=== PATIENT | male | born 1975 | race Caucasian/White ===

== ENCOUNTER 2017-09-02 14:28 | Inpatient (IN) | payer OTHER ==
[~2017-09-02] VITALS: Ht 182.9 cm; Wt 90.3 kg
[2017-09-02 16:40] VITALS: BP 130/90
[2017-09-02] MEDS: HYDROmorphone 2 MG/ML VIAL IV PRN ×2 (18:30→21:23)
[2017-09-02 19:00] VITALS: BP 131/90
[2017-09-02] MEDS ORDERED: ZOLPIDEM 5 MG TABLET. PO PRN (21:00)
[2017-09-02] MEDS ORDERED: 0.9 % SODIUM CHLORIDE 10 ML DISP.SYRIN. IV PRN (21:00)
[2017-09-02] MEDS ORDERED: oxyCODONE IR 5 MG TABLET PO PRN (21:00)
[2017-09-02] MEDS ORDERED: CALCIUM CARBONATE 500 MG TAB.CHEW PO PRN (21:00)
[2017-09-02] MEDS: SENNOSIDES/DOCUSATE 8.6/50MG TABLET. PO SCH (21:23)
[2017-09-02] MEDS: POTASSIUM CL 20MEQ D5-0.45NACL 1,000 ML IV SCH (21:24)
[2017-09-02 21:35] LABS: BASO # 0.1 x10^3/uL (0.0-0.2); BASO % 1 % (0-3); EOS % 1 % (0-3); HEMOGLOBIN 14.5 g/dL (13.0-17.5); LYMPH # 3.9 x10^3/uL (1.0-4.8); LYMPH % 29 % (24-48); MEAN CORPUSCULAR HEMOGLOBIN 30 pg (25-35); MEAN CORPUSCULAR HGB CONC 34 g/dL (31-37); MEAN CORPUSCULAR VOLUME 88 fL (79-100); MONO % 12 % (0-9); NEUT % 58 % (31-73); PLATELET COUNT 384 x10^3/uL (140-400); RED BLOOD COUNT 4.88 x10^6/uL (4.30-5.70); RED CELL DISTRIBUTION WIDTH 13.7 % (11.5-14.5); WHITE BLOOD COUNT 13.6 x10^3/uL (4.0-11.0)
[2017-09-02] MEDS: NICOTINE 21MG PATCH. TD SCH (21:58)
[2017-09-02 21:59] LABS: ALBUMIN 3.6 g/dL (3.4-5.0); CALCIUM 8.9 mg/dL (8.5-10.1); GFR 83.2; POTASSIUM 3.1 mmol/L (3.5-5.1); TOTAL BILIRUBIN 0.3 mg/dL (0.2-1.0); TOTAL PROTEIN 7.2 g/dL (6.4-8.2)
[2017-09-02] MEDS: oxyCODONE IR 5 MG TABLET PO PRN (22:26)
[2017-09-02 23:21] VITALS: BP 136/89
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
[2017-09-03] MEDS: HYDROmorphone 2 MG/ML VIAL IV PRN ×4 (00:04→11:21)
[2017-09-03 02:26] LABS: INR 1.1 (0.8-1.1); PROTHROMBIN TIME PATIENT 13.4 SEC (11.7-14.0)
[2017-09-03] MEDS: oxyCODONE IR 5 MG TABLET PO PRN ×2 (03:08→13:29)
[2017-09-03 03:30] VITALS: BP 118/88
[2017-09-03 07:00] VITALS: BP 135/75
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
[2017-09-03] MEDS ORDERED: NICOTINE 21MG PATCH. TD SCH (09:00)
[2017-09-03] MEDS: SENNOSIDES/DOCUSATE 8.6/50MG TABLET. PO SCH (09:00)
[2017-09-03] MEDS: POTASSIUM CL 20MEQ D5-0.45NACL 1,000 ML IV SCH ×2 (09:15→17:00)
[2017-09-03] MEDS: NICOTINE 21MG PATCH. TD SCH (09:17)
--- NOTE | 2017-09-03 10:54 | PDOC ---
PROGRESS NOTES Chief Complaint Chief Complaint R tibial fx. tobacco use disorder planned ORIF today pain control OK History of Present Illness History of Present Illness hungry and thirsty pain ok when in bed, has not tried to get up, Vitals Vitals Vital Signs Date Time Temp Pulse Resp B/P (MAP) Pulse Ox O2 Delivery O2 Flow Rate FiO2 09/03/17 09:12 97 Room Air 09/03/17 07:00 98.1 79 18 135/75 (95) 98.1 Physical Exam General: Alert, Oriented X3, Cooperative, No acute distress Heart: Regular rate, No murmurs Abdomen: Normal bowel sounds, Soft, No tenderness Extremities: No clubbing, No edema, Other (R leg in ill-fitting brace) Labs LABS Laboratory Tests Test 09/02/17 21:15 White Blood Count 13.6 x10^3/uL (4.0-11.0) Red Blood Count 4.88 x10^6/uL (4.30-5.70) Hemoglobin 14.5 g/dL (13.0-17.5) Hematocrit 43.0 % (39.0-53.0) Mean Corpuscular Volume 88 fL (79-100) Mean Corpuscular Hemoglobin 30 pg (25-35) Mean Corpuscular Hemoglobin Concent 34 g/dL (31-37) Red Cell Distribution Width 13.7 % (11.5-14.5) Platelet Count 384 x10^3/uL (140-400) Neutrophils (%) (Auto) 58 % (31-73) Lymphocytes (%) (Auto) 29 % (24-48) Monocytes (%) (Auto) 12 % (0-9) Eosinophils (%) (Auto) 1 % (0-3) Basophils (%) (Auto) 1 % (0-3) Neutrophils # (Auto) 7.9 x10^3uL (1.8-7.7) Lymphocytes # (Auto) 3.9 x10^3/uL (1.0-4.8) Monocytes # (Auto) 1.7 x10^3/uL (0.0-1.1) Eosinophils # (Auto) 0.1 x10^3/uL (0.0-0.7) Basophils # (Auto) 0.1 x10^3/uL (0.0-0.2) Prothrombin Time 13.4 SEC (11.7-14.0) Prothromb Time International Ratio 1.1 (0.8-1.1) Sodium Level 139 mmol/L (136-145) Potassium Level 3.1 mmol/L (3.5-5.1) Chloride Level 103 mmol/L (98-107) Carbon Dioxide Level 25 mmol/L (21-32) Anion Gap 11 (6-14) Blood Urea Nitrogen 13 mg/dL (8-26) Creatinine 1.0 mg/dL (0.7-1.3) Estimated GFR (Cockcroft-Gault) 83.2 BUN/Creatinine Ratio 13 (6-20) Glucose Level 151 mg/dL (70-99) Calcium Level 8.9 mg/dL (8.5-10.1) Total Bilirubin 0.3 mg/dL (0.2-1.0) Aspartate Amino Transf (AST/SGOT) 21 U/L (15-37) Alanine Aminotransferase (ALT/SGPT) 31 U/L (16-63) Alkaline Phosphatase 73 U/L (46-116) Total Protein 7.2 g/dL (6.4-8.2) Albumin 3.6 g/dL (3.4-5.0) Albumin/Globulin Ratio 1.0 (1.0-1.7) Review of Systems Review of Systems no n.,v.d Comment Review of Relevant I have reviewed the following items tico (where applicable) has been applied. Labs Laboratory Tests Test 09/02/17 21:15 White Blood Count 13.6 x10^3/uL (4.0-11.0) Red Blood Count 4.88 x10^6/uL (4.30-5.70) Hemoglobin 14.5 g/dL (13.0-17.5) Hematocrit 43.0 % (39.0-53.0) Mean Corpuscular Volume 88 fL (79-100) Mean Corpuscular Hemoglobin 30 pg (25-35) Mean Corpuscular Hemoglobin Concent 34 g/dL (31-37) Red Cell Distribution Width 13.7 % (11.5-14.5) Platelet Count 384 x10^3/uL (140-400) Neutrophils (%) (Auto) 58 % (31-73) Lymphocytes (%) (Auto) 29 % (24-48) Monocytes (%) (Auto) 12 % (0-9) Eosinophils (%) (Auto) 1 % (0-3) Basophils (%) (Auto) 1 % (0-3) Neutrophils # (Auto) 7.9 x10^3uL (1.8-7.7) Lymphocytes # (Auto) 3.9 x10^3/uL (1.0-4.8) Monocytes # (Auto) 1.7 x10^3/uL (0.0-1.1) Eosinophils # (Auto) 0.1 x10^3/uL (0.0-0.7) Basophils # (Auto) 0.1 x10^3/uL (0.0-0.2) Prothrombin Time 13.4 SEC (11.7-14.0) Prothromb Time International Ratio 1.1 (0.8-1.1) Sodium Level 139 mmol/L (136-145) Potassium Level 3.1 mmol/L (3.5-5.1) Chloride Level 103 mmol/L (98-107) Carbon Dioxide Level 25 mmol/L (21-32) Anion Gap 11 (6-14) Blood Urea Nitrogen 13 mg/dL (8-26) Creatinine 1.0 mg/dL (0.7-1.3) Estimated GFR (Cockcroft-Gault) 83.2 BUN/Creatinine Ratio 13 (6-20) Glucose Level 151 mg/dL (70-99) Calcium Level 8.9 mg/dL (8.5-10.1) Total Bilirubin 0.3 mg/dL (0.2-1.0) Aspartate Amino Transf (AST/SGOT) 21 U/L (15-37) Alanine Aminotransferase (ALT/SGPT) 31 U/L (16-63) Alkaline Phosphatase 73 U/L (46-116) Total Protein 7.2 g/dL (6.4-8.2) Albumin 3.6 g/dL (3.4-5.0) Albumin/Globulin Ratio 1.0 (1.0-1.7) Laboratory Tests Test 09/02/17 21:15 White Blood Count 13.6 x10^3/uL (4.0-11.0) Red Blood Count 4.88 x10^6/uL (4.30-5.70) Hemoglobin 14.5 g/dL (13.0-17.5) Hematocrit 43.0 % (39.0-53.0) Mean Corpuscular Volume 88 fL (79-100) Mean Corpuscular Hemoglobin 30 pg (25-35) Mean Corpuscular Hemoglobin Concent 34 g/dL (31-37) Red Cell Distribution Width 13.7 % (11.5-14.5) Platelet Count 384 x10^3/uL (140-400) Neutrophils (%) (Auto) 58 % (31-73) Lymphocytes (%) (Auto) 29 % (24-48) Monocytes (%) (Auto) 12 % (0-9) Eosinophils (%) (Auto) 1 % (0-3) Basophils (%) (Auto) 1 % (0-3) Neutrophils # (Auto) 7.9 x10^3uL (1.8-7.7) Lymphocytes # (Auto) 3.9 x10^3/uL (1.0-4.8) Monocytes # (Auto) 1.7 x10^3/uL (0.0-1.1) Eosinophils # (Auto) 0.1 x10^3/uL (0.0-0.7) Basophils # (Auto) 0.1 x10^3/uL (0.0-0.2) Prothrombin Time 13.4 SEC (11.7-14.0) Prothromb Time International Ratio 1.1 (0.8-1.1) Sodium Level 139 mmol/L (136-145) Potassium Level 3.1 mmol/L (3.5-5.1) Chloride Level 103 mmol/L (98-107) Carbon Dioxide Level 25 mmol/L (21-32) Anion Gap 11 (6-14) Blood Urea Nitrogen 13 mg/dL (8-26) Creatinine 1.0 mg/dL (0.7-1.3) Estimated GFR (Cockcroft-Gault) 83.2 BUN/Creatinine Ratio 13 (6-20) Glucose Level 151 mg/dL (70-99) Calcium Level 8.9 mg/dL (8.5-10.1) Total Bilirubin 0.3 mg/dL (0.2-1.0) Aspartate Amino Transf (AST/SGOT) 21 U/L (15-37) Alanine Aminotransferase (ALT/SGPT) 31 U/L (16-63) Alkaline Phosphatase 73 U/L (46-116) Total Protein 7.2 g/dL (6.4-8.2) Albumin 3.6 g/dL (3.4-5.0) Albumin/Globulin Ratio 1.0 (1.0-1.7) Medications Current Medications Hydromorphone HCl (Dilaudid) 0.5 mg PRN Q2HRS PRN IV PAIN Last administered on 09/02/17 21:23; Start 09/02/17 at 18:15 Sodium Chloride (Normal Saline Flush) 3 ml PRN DAILY PRN IV AFTER MEDS AND BLOOD DRAWS; Start 09/02/17 at 21:00 Potassium Chloride/Dextrose/ Sod Cl 1,000 ml @ 100 mls/hr Q10H IV Last administered on 09/03/17 09:15; Start 09/02/17 at 21:00 Calcium Carbonate/ Glycine (Tums) 500 mg PRN Q3HRS PRN PO UPSET STOMACH; Start 09/02/17 at 21:00 Zolpidem Tartrate (Ambien) 5 mg PRN QHS PRN PO INSOMNIA, MAY REPEAT IN 1HR; Start 09/02/17 at 21:00 Oxycodone HCl (Roxicodone) 5 mg PRN Q4HRS PRN PO PAIN - 1st choice; Start 09/02/17 at 21:00 Hydromorphone HCl (Dilaudid) 0.5 mg PRN Q2HR PRN IV severe pain - 2nd choice Last administered on 09/03/17 09:12; Start 09/02/17 at 21:00 Senna/Docusate Sodium (Senna Plus) 1 tab BID PO Last administered on 09/02/17 21:23; Start 09/02/17 at 21:15 Enoxaparin Sodium (Lovenox 40mg Syringe) 40 mg Q24H SQ ; Start 09/04/17 at 09: 00 Nicotine (Nicoderm Cq 21mg) 1 patch DAILY TD ; Start 09/03/17 at 09:00; Stop at 09:00; Status DC Oxycodone HCl (Roxicodone) 10 mg PRN Q4HRS PRN PO PAIN - 1st choice Last administered on 09/03/17 03:08; Start 09/02/17 at 21:15 Nicotine (Nicoderm Cq 21mg) 1 patch DAILY TD Last administered on 09/03/17t 09: 17; Start 09/02/17 at 22:00 Vitals/I & O Vital Sign - Last 24 Hours 09/02/17 09/02/17 09/02/17 09/02/17 16:40 16:40 19:00 20:30 Temp 98.6 98.6 98.1 98.6 98.6 98.1 Pulse 78 78 85 Resp 18 18 18 B/P (MAP) 130/90 (103) 130/90 (103) 131/90 (104) Pulse Ox 98 98 92 O2 Delivery Room Air Room Air Room Air Room Air 09/02/17 09/02/17 09/02/17 09/02/17 21:23 21:58 22:26 23:21 Temp 98.3 98.3 Pulse 90 Resp 16 16 16 17 B/P (MAP) 136/89 (105) Pulse Ox 92 92 92 97 O2 Delivery Room Air Room Air Room Air Room Air 09/03/17 09/03/17 09/03/17 09/03/17 00:04 03:08 03:30 04:00 Temp 98.1 98.1 Pulse 89 Resp 16 16 16 16 B/P (MAP) 118/88 (98) Pulse Ox 97 97 97 97 O2 Delivery Room Air Room Air Room Air Room Air 09/03/17 09/03/17 09/03/17 09/03/17 04:10 04:31 07:00 09:12 Temp 98.1 98.1 Pulse 79 Resp 16 16 18 B/P (MAP) 135/75 (95) Pulse Ox 97 97 94 97 O2 Delivery Room Air Room Air Room Air Room Air UMA GODINEZ MD Sep 03, 2017 10:54
[2017-09-03 11:00] VITALS: BP 125/87
[2017-09-03] MEDS ORDERED: POTASSIUM CHLORIDE 20 MEQ TABLET.ER. PO ONE (11:00)
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
[2017-09-03] MEDS ORDERED: SENN-22 PO (13:30)
[2017-09-03] MEDS ORDERED: NICO1PAT25 TP (13:30)
[2017-09-03] MEDS ORDERED: OXYC-328 PO (13:30)
[2017-09-03 15:00] VITALS: BP 136/85
[2017-09-03] MEDS ORDERED: oxyCODONE/APAP 10/325 1 TAB TABLET PO PRN (16:30)
[2017-09-04] MEDS ORDERED: POTASSIUM CHLORIDE 20 MEQ TABLET.ER. PO SCH (08:00)
[2017-09-04] MEDS ORDERED: ENOXAPARIN 40 MG/0.4 ML SYRINGE. SQ SCH (09:00)
--- NOTE | 2017-09-17 01:45 | PDOC3 ---
Discharge Summary Visit Information Date of Admission: Sep 02, 2017 Date of Discharge: Sep 03, 2017 Admitting Diagnosis: leg fracture, fall pain Final Diagnosis R tibial fx. tobacco use disorder planned ORIF today pain control OK s Brief Hospital Course Allergies Allergies Coded Allergies Type Severity Reaction Last Updated Verified morphine Allergy Intermediate Itching, nausea 09/02/17 Yes Brief Hospital Course Mr. Hannon is a 42 old admit after a fall, fracture to tibia, closed, communited, Dr. Barroso from ortho eval, no benefit to surg at th time. brace placed, DC home non weight bearing maybe 2 mos Discharge Information Condition at Discharge: Improved Follow Up: Weeks Disposition/Orders: D/C to Home Scheduled Nicotine (NICODERM CQ 14mg), 1 PATCH TP DAILY Sennosides/Docusate Sodium (Senna-Time S Tablet), 1 TAB PO DAILY Scheduled PRN Oxycodone/Apap 10-325 (Percocet 10-325 Mg Tablet), 1 TAB PO QID PRN for PAIN UMA GODINEZ MD Sep 17, 2017 01:45
== END 2017-09-03 16:55 | disposition home or self-care (01) | DRG 563 ==
LOC: 4 NORTH 16:43 → EDBD 16:43
PROVIDERS: ADMIT Internal Medicine Hematology & Oncology; ATTEND Internal Medicine Hematology & Oncology
DX: S82.201A Unspecified fracture of shaft of right tibia, initial encounter for closed fracture (principal); F17.210 Nicotine dependence, cigarettes, uncomplicated; Z88.5 Allergy status to narcotic agent; V89.2XXA Person injured in unspecified motor-vehicle accident, traffic, initial encounter; Y93.89 Activity, other specified; Y92.89 Other specified places as the place of occurrence of the external cause; Y99.8 Other external cause status
CPT/HCPCS: 36415; 73721; 80053; 82306; 85025; 85610; J1170

== ENCOUNTER 2021-07-19 10:07 | Emergency (ER) | payer SELFPAY ==
[~2021-07-19] VITALS: Ht 182.9 cm; Wt 95.5 kg
[~2021-07-19 10:07] MED LIST: NICO1PAT25 TP; OXYC1TAB22 PO; SENN-22 PO
--- NOTE | 2021-07-19 12:13 | RAD ---
EXAM: Chest, single view. HISTORY: Cough. COMPARISON: None. FINDINGS: A frontal view of the chest is obtained. There is no infiltrate, pleural effusion or pneumo thorax. The heart is normal in size. IMPRESSION: No acute pulmonary finding. Electronically signed by: Bettina Butterfield MD (07/19/2021 12:11 PM) [id number]
--- NOTE | 2021-07-19 12:16 | PHYS DOC ---
Past Medical History Past Medical History: No Pertinent History Past Surgical History: Other Additional Past Surgical Histo: left knee, left leg ORIF, vasectomy,dental extractions Smoking Status: Current Every Day Smoker Additional Information: 1 ppd Alcohol Use: Rarely General Adult EDM: Chief Complaint: FLU SYMPTOM HPI: HPI: 46-year-old male presents to the emergency department with suspected Covid symptoms including cough, shortness of breath, body aches, fever, chills. He reports he has had symptoms for approximately 3 days which started with fatigue. He has been exposed to several family members who have been positive for coronavirus. He has not been vaccinated to this point. He denies any further symptoms. The patient denies nausea, vomiting, chest pain, abdominal pain, urinary symptoms, recent trauma, or any other complaints. Review of Systems: Review of Systems: Review of systems is otherwise negative except for what was mentioned in HPI Heart Score: C/O Chest Pain: No Allergies: Allergies: Allergies Coded Allergies Type Severity Reaction Last Updated Verified morphine Allergy Intermediate Itching, nausea 07/19/21 Yes Physical Exam: PE: Constitutional: No acute distress, non-toxic appearance. HENT: Atraumatic, bilateral external ears normal, nose normal. Eyes: PERRLA, EOMI, conjunctiva normal, no discharge. Neck: Normal range of motion, supple, no stridor. Cardiovascular: Heart rate regular rhythm. 2+ radial pulses Lungs & Thorax: No respiratory distress, symmetrical expansion. Bilateral breath sounds clear to auscultation Abdomen: Soft, no tenderness Skin: Warm, dry. Extremities: No tenderness, no cyanosis, ROM intact, no edema. Neurologic: Alert and oriented X 3, normal motor function, normal sensory function, no focal deficits noted. Non ataxic gait. GCS 15. Psychologic: Affect normal, judgment normal, mood normal. Current Patient Data: Vital Signs: Vital Signs Date Time Temp Pulse Resp B/P (MAP) Pulse Ox O2 Delivery O2 Flow Rate FiO2 07/19/21 11:55 79 16 131/86 (101) 97 Room Air 07/19/21 10:42 99.1 99.1 Radiology/Procedures: Radiology/Procedures: No airspace disease, infiltrates or consolidations, lung mccord clear. No pneumothorax or pleural effusion. Cardiac silhouette within normal limits. No widening of mediastinum. No obvious free air seen. Impression: normal CXR. In terpreted by me, Ryan Jaramillo D.O. Course & Med Decision Making: Course & Med Decision Making Patient with normal-appearing chest x-ray, no further symptoms, high suspicion for coronavirus infection. Advised patient to quarantine at home and strict return precautions were discussed with the patient. He is early in his course so I did express that he may get worse given that he is unvaccinated. I urged him to get vaccinated when it is an appropriate time in consultation with his primary care physician. He is stable on room air Departure Departure Impression: Primary Impression: Person under investigation for COVID-19 Disposition: HOME / SELF CARE / HOMELESS Condition: STABLE Referrals: NO PCP (PCP) Patient Instructions: Upper Respiratory Infection, Adult, [id number] Additional Instructions: You were seen in the emergency department for a upper respiratory tract infection, most likely from COVID-19. You should return to the ED if you develop worsening cough, shortness of breath, chest pain, or any other new or concerning symptoms. You can use an OTC sinus rinse to help with sinus congestion. Your cough may persist for a few weeks but your other symptoms should gradually improve. You should make sure to drink plenty of fluids at home. You may use Tylenol at home for fevers every 4-6 hours no more than 4000 mg/day. Please remember it is very important that you self isolate/quarantine at home, stay away from family and friends, and stay away from work until you are cleared by your physician or you test negative and are asymptomatic. RYAN JARAMILLO DO Jul 19, 2021 12:16
[2021-07-19 12:30] VITALS: BP 119/77
--- NOTE | 2021-07-19 18:21 | NUR ---
IP: Attempted to contact pt concerning covid results. No answer, left a voicemail to return the call.
--- NOTE | 2021-07-19 18:53 | NUR ---
IP: Informed pt of positive covid test and the need to quarantine for 10 days. Pt verbalized understanding.
== END 2021-07-19 12:30 | disposition home or self-care (01) ==
LOC: ER 10:07
DX: U07.1 COVID-19 (principal); F17.200 Nicotine dependence, unspecified, uncomplicated; Z88.5 Allergy status to narcotic agent
CPT/HCPCS: 71045; 99284; U0003; U0005

== ENCOUNTER 2021-08-22 08:10 | Emergency (ER) | payer SELFPAY ==
[~2021-08-22] VITALS: Ht 182.9 cm; Wt 92.0 kg
[2021-08-22 08:49] VITALS: BP 140/89
[2021-08-22] MEDS ORDERED: ACETAMINOPHEN 500 MG TABLET PO ONE (09:30)
--- NOTE | 2021-08-22 09:39 | RAD ---
XR RIBS MIN 3 VIEWS RT W/PA CHEST 08/22/2021 9:17 AM INDICATION: Right lower lateral rib pain COMPARISON: Chest radiograph 07/19/2021 TECHNIQUE: Portable frontal view of the chest is provided. 4 views of the right ribs are provided. FINDINGS: The cardiomediastinal silhouette is within normal limits. There is subsegmental atelectasis at the [facility] lung base. There are no significant pleural effusions. There is no pulmonary vascular congestion. No pneumothora x. There are 12 paired ribs. No acutely displaced right rib fracture is identified. IMPRESSION: There is no acute cardiopulmonary process. No acutely displaced right-sided rib fracture. Electronically signed by: Oksana Campbell MD (08/22/2021 9:37 AM) [id number]
--- NOTE | 2021-08-22 09:51 | PHYS DOC ---
Past Medical History Past Medical History: No Pertinent History Past Surgical History: Other Additional Past Surgical Histo: left knee, left leg ORIF, vasectomy,dental extractions Smoking Status: Current Every Day Smoker Alcohol Use: Rarely General Adult EDM: Chief Complaint: MECHANICAL FALL HPI: HPI: Patient is a 46 year old [f__sex] who presents with [] Review of Systems: Review of Systems: Constitutional: Denies fever or chills. [] Eyes: Denies change in visual acuity. [] HENT: Denies nasal congestion or sore throat. [] Respiratory: Denies cough or shortness of breath. [] Cardiovascular: Denies chest pain or edema. [] GI: Denies abdominal pain, nausea, vomiting, bloody stools or diarrhea. [] : Denies dysuria. [] Musculoskeletal: Denies back pain or joint pain. [] Integument: Denies rash. [] Neurologic: Denies headache, focal weakness or sensory changes. [] Endocrine: Denies polyuria or polydipsia. [] Lymphatic: Denies swollen glands. [] Psychiatric: Denies depression or anxiety. [] Heart Score: Risk Factors: Risk Factors: DM, Current or recent (<one month) smoker, HTN, HLP, family history of CAD, obesity. Risk Scores: Score 0 - 3: 2.5% MACE over next 6 weeks - Discharge Home Score 4 - 6: 20.3% MACE over next 6 weeks - Admit for Clinical Observation Score 7 - 10: 72.7% MACE over next 6 weeks - Early Invasive Strategies Current Medications: Current Medications Medications (Trade) Dose Ordered Sig/[facility] Start Time Stop Time Status Last Admin Dose Admin Acetaminophen (Tylenol) 500 mg 1X ONCE 08/22/21 09:30 08/22/21 09:31 DC Allergies: Allergies: Allergies Coded Allergies Type Severity Reaction Last Updated Verified morphine Allergy Intermediate Itching, nausea 07/19/21 Yes Physical Exam: PE: Constitutional: Well developed, well nourished, no acute distress, non-toxic appearance. [] HENT: Normocephalic, atraumatic, bilateral external ears normal, oropharynx moist, no oral exudates, nose normal. [] Eyes: PERRLA, EOMI, conjunctiva normal, no discharge. [] Neck: Normal range of motion, no tenderness, supple, no stridor. [] Cardiovascular:Heart rate regular rhythm, no murmur [] Lungs & Thorax: Bilateral breath sounds clear to auscultation [] Abdomen: Bowel sounds normal, soft, no tenderness, no masses, no pulsatile masses. [] Skin: Warm, dry, no erythema, no rash. [] Back: No tenderness, no CVA tenderness. [] Extremities: No tenderness, no cyanosis, no clubbing, ROM intact, no edema. [] Neurologic: Alert and oriented X 3, normal motor function, normal sensory function, no focal deficits noted. [] Psychologic: Affect normal, judgement normal, mood normal. [] Current Patient Data: Vital Signs: Vital Signs Date Time Temp Pulse Resp B/P (MAP) Pulse Ox O2 Delivery O2 Flow Rate FiO2 08/22/21 08:49 97.9 74 18 140/89 (106) 98 Room Air 97.9 EKG: EKG: [] Radiology/Procedures: Radiology/Procedures: [] Course & Med Decision Making: Course & Med Decision Making Pertinent Labs and Imaging studies reviewed. (See chart for details) [] Dragon Disclaimer: Dragon Disclaimer: This electronic medical record was generated, in whole or in part, using a voice recognition dictation system. Departure Departure Impression: Primary Impression: Acute chest wall pain Disposition: HOME / SELF CARE / HOMELESS Condition: STABLE Referrals: NO PCP (PCP) Patient Instructions: Chest Wall Pain, [id number], Incentive Spirometer Additional Instructions: Ice area of discomfort 20 minutes on then leave off next 20 minutes. Repeat several times daily for the next 2 days. Take [id number] ibuprofen and or Tylenol for pain or discomfort. Use incentive spirometer 10 times in a row at least 5 times daily for the next 7 days. Scripts Orphenadrine Citrate (ORPHENADRINE CITRATE) 100 Mg Tablet.er 100 MG PO BID PRN for MUSCLE PAIN, #14 TAB Prov: VALDEZ TOVAR DO 08/22/21 VALDEZ TOVAR DO Aug 22, 2021 09:50
[2021-08-22] MEDS ORDERED: ORPH100T PO (10:01)
== END 2021-08-22 10:30 | disposition home or self-care (01) ==
LOC: ER 08:10
DX: R07.81 Pleurodynia (principal); G89.11 Acute pain due to trauma; F17.200 Nicotine dependence, unspecified, uncomplicated; Z88.5 Allergy status to narcotic agent; W10.8XXA Fall (on) (from) other stairs and steps, initial encounter; Y93.89 Activity, other specified; Y92.89 Other specified places as the place of occurrence of the external cause; Y99.8 Other external cause status
CPT/HCPCS: 71101; 99283